=== PATIENT | male | born 1955 | race Caucasian/White ===

== ENCOUNTER 2017-05-05 11:00 | Inpatient (IN) | payer MEDICARE ==
[~2017-05-05] VITALS: Ht 170.2 cm; Wt 76.5 kg
--- NOTE | ~2017-05-05 | NM8 ---
[facility] A Service of [facility] & [facility] RADIOLOGY TEXT RESULTS PATIENT: DANIEL JONES LOCATION: [facility] 464-01 : 53 UNIT #: [id number] AGE: [address]: Enmanuel Mathis MD SEX: M ORDER DR: [id number] [facility] [address] [place], [place] [address] [id number] MR#: [id number] Acc #: [id number] NAME: DANIEL JONES : 1955 SEX: M STUDY DATE/TIME: 05/08/2017 13:07 UNIT: [facility] ROOM: [facility] STUDY DESCRIPTION: NM Bone or Joint Whole Body Attending Physician: Enmanuel Mathis M.D. Ordering Physician: Enmanuel Mathis M.D. Primary Care Physician: Isak Jacobs M.D. MEDICAL IMAGING REPORT This report is preliminary unless electronic signature is present EXAM Whole-body bone scan. HISTORY 62-year-old male diagnosed with transitional cell carcinoma. Patient underwent cystectomy and prostatectomy in 2014. Surveillance for metastatic disease. Complains of arthritis in knees, hands and ankles. COMPARISON Whole-body bone scan 07/13/2015, and CT chest, abdomen and pelvis 05/05/2017. FINDINGS Whole-body and selected spot images were performed of the axial and appendicular skeleton following the intravenous administration of 27.4 mCi technetium 99m MDP. Examination demonstrates increased uptake within the right knee predominately within the medial and patellofemoral compartments compatible with underlying osteoarthritis. Degenerative uptake is also noted within the right midfoot and within the right first MTP joint. No abnormal uptake identified within the long bones ribs, pelvis spine or skull to suggest osseous metastatic disease. Bilateral renal activity noted. As the patient has undergone a cystectomy, activity is seen within the right lower quadrant, and within the patient's ostomy bag. Bilateral renal activity noted. Additional spot views were obtained and the patient's ostomy bag was repositioned which revealed no pathology within the pelvis. IMPRESSION 1. No bone scan findings to suggest osseous metastatic disease. 2. Degenerative uptake right knee, right midfoot, and right first MTP joint. [facility] A Service of [facility] & [facility] RADIOLOGY TEXT RESULTS PATIENT: DANIEL JONES LOCATION: [facility] 464-01 : 53 UNIT #: [id number] AGE: [address]: Enmanuel Mathis MD SEX: M ORDER DR: Dictated by... Radha Langley M.D. THIS IS AN ELECTRONICALLY VERIFIED REPORT Radha Langley M.D. at 05/10/2017 5:12 PM Lazaro TD: 05/08/2017 23:30 JOB #: [id number] MEDICAL IMAGING REPORT Page 1 of 1 COPY
--- NOTE | ~2017-05-05 | CT55 ---
[facility] A Service of [facility] & [facility] RADIOLOGY TEXT RESULTS PATIENT: DANIEL JONES LOCATION: [facility] 464-01 : 53 UNIT #: [id number] AGE: [address]: Enmanuel Mathis MD SEX: M ORDER DR: [id number] [facility]. [place], [place] [address] [id number] I MR#: [id number] Acc #: [id number] NAME: DANIEL JONES : 1955 SEX: M STUDY DATE/TIME: 05/05/2017 18:21 UNIT: [facility] ROOM: [facility] STUDY DESCRIPTION: CT Chest W Con Attending Physician: Enmanuel Mathis M.D. Ordering Physician: Enmanuel Mathis M.D. Primary Care Physician: Isak Jacobs M.D. MEDICAL IMAGING REPORT This report is preliminary unless electronic signature is present EXAM CT chest with IV contrast HISTORY Bladder cancer, new diagnosis. CT for cancer staging. TECHNIQUE This CT exam was performed with one or more of the following radiation dose reduction techniques: automatic exposure control, adjustment of mA and/or kV according to patient size, and iterative reconstruction. FINDINGS CT chest with IV contrast demonstrates mild subsegmental atelectasis in the posterior lower lobes bilaterally, right greater than left. Mild patchy interstitial and ground-glass infiltrates in the bilateral upper lobes and, to a lesser degree in the right middle lobe and lingula. These could be infectious or inflammatory or postinflammatory. No airspace consolidation. No pleural effusion. No pulmonary mass. No adenopathy. Incidental calcified mediastinal and right hilar nodes. Normal caliber thoracic aorta. IMPRESSION 1. No evidence of metastatic disease. 2. Mild patchy ground-glass and interstitial infiltrates in the bilateral upper lobes and to a lesser degree in the right middle lobe and lingula. These could be infectious or inflammatory or postinflammatory. 3. Mild subsegmental atelectasis posterior lower lobes bilaterally. Dictated by... Fernando Scherer M.D. THIS IS AN ELECTRONICALLY VERIFIED REPORT [facility] A Service of [facility] & [facility] RADIOLOGY TEXT RESULTS PATIENT: DANIEL JONES LOCATION: [facility] 464-01 : 53 UNIT #: [id number] AGE: [address]: Enmanuel Mathis MD SEX: M ORDER DR: Fernando Scherer M.D. at 05/06/2017 2:21 PM BARBER/libertad TD: 05/06/2017 12:44 JOB #: [id number] MEDICAL IMAGING REPORT Page 1 of 1 COPY
--- NOTE | ~2017-05-05 | OR ---
Unit #: [id number] #: [id number] Patient: DANIEL VICTOR [id number] [address] [address] [id number] I MR#: [id number] NAME: DANIEL VICTOR. ROOM: 464 Date of Procedure: 05/05/2017 Admission Date: 05/05/2017 Surgeon: Enmanuel Mathis M.D. : 1955 Attending Physician: Enmanuel Mathis M.D. Primary Care Physician: Isak Jacobs M.D. PROCEDURE OPERATIVE NOTE PREOPERATIVE DIAGNOSES 1. History of transitional cell carcinoma of the bladder. 2. Penile mass. POSTOPERATIVE DIAGNOSES 1. History of transitional cell carcinoma of the bladder. 2. Penile mass. PROCEDURES PERFORMED 1. Urethroscopy. 2. Urethral biopsy. 3. Penile biopsy. SURGEON Enmanuel Mathis M.D. ANESTHESIA General. INDICATIONS FOR PROCEDURE Mr. Victor is a pleasant 62-year-old gentleman who underwent a radical cystoprostatectomy in 2014. His pathology revealed transitional cell carcinoma with glandular differentiation involving the prostatic ducts and seminal vesicles. It was unclear if it was a prosthetic urethra versus bladder origin. He did have positive apical margin for transitional cell carcinoma but negative nodes. He had one dose of chemotherapy but he stopped and declined further chemotherapy. He has developed penile and testicular pain over the last two months which has become severe requiring multiple narcotics. The patient has not typically been one to complain of pain in the past. On his penile exam, he has masses of the proximal penis around the corporal bodies as well as distally as well. Based on this, the risks, benefits, and alternatives of urethroscopy, urethral biopsy, and biopsy of his penile lesions were discussed with the patient. The risks, benefits, and alternatives including bleeding, infection, damage to adjacent structures, need for further surgery, as well as, risk of anesthesia were discussed with the patient. Informed consent was obtained. He wished to proceed. DESCRIPTION OF PROCEDURE The patient was taken to the operating suite and properly identified. After the application of satisfactory general anesthetic, all pressure points were padded to the satisfaction of surgical, anesthetic and nursing teams. His genitalia were prepped and draped in the usual sterile Unit #: [id number] #: [id number] Patient: DANIEL VICTOR. I introduced the 26-Malay continuous flow resectoscope. I was able to go to the level of the proximal urethra. I used a cutting loop to excise multiple biopsies of the urethra. I also did a biopsy distally as well. I then used Yang-Cut biopsy needle to take biopsy specimens of his proximal and distal penis. Hemostasis was achieved. A penile dressing was placed. The patient tolerated the procedure well without complications. PLAN Will need to followup his pathology. I am highly suspicious that this is a recurrence in the penis. We will restage him with a repeat CT scan of his chest, abdomen, and pelvis although these were essentially negative two months ago. We will work to get his pain under better control. Dictated by... Enmanuel Mathis M.D. MADELYN/klarissa TD: 05/05/2017 17:07 JOB #: [id number] PROCEDURE OPERATIVE NOTE Page 1 of 1 X Enmanuel Mathis MD X PROCEDURE OPERATIVE NOTE
--- NOTE | ~2017-05-05 | EKG ---
PATIENT: DANIEL JONES UNIT #: [id number] Ventricular Rate: 91 BPM Atrial Rate: 91 BPM P-R Interval: 144 ms QRS Duration: 88 ms Q-T Interval: 348 ms QTC Calculation(Bezet): 428 ms P [place]: 6 degrees Calculated R [place]: -5 degrees Calculated T [place]: 61 degrees Diagnosis Line: Normal sinus rhythm Diagnosis Line: Normal ECG Diagnosis Line: When compared with ECG of 08-JUN-2015 18:12, Diagnosis Line: Premature atrial complexes are no longer Present Diagnosis Line: Confirmed by MEMO WOOD MD ([id number]) on Diagnosis Line: 05/05/2017 7:37:20 PM INTERPRETING MD: ISRAEL MUNIZ
--- NOTE | ~2017-05-05 | DS ---
Unit #: [id number] #: [id number] Patient: DANIEL JONES [id number] [address] [address] [id number] I MR#: [id number] NAME: DANIEL JONES ROOM: 464 Age: 62 Sex: M Admission Date: 05/05/2017 : 1955 Discharge Date: 05/09/2017 Attending Physician: Enmanuel Mathis M.D. Primary Care Physician: Isak Jacobs M.D. DISCHARGE SUMMARY DIAGNOSIS Metastatic bladder cancer. PROCEDURES Urethral biopsy. HOSPITAL COURSE The patient underwent ureteroscopy, urethral biopsy, and penile biopsy. Pathology shows metastatic bladder cancer. The patient had pain control issues postop. Plan is send him home, then have outpatient radical penectomy. Past medical history of COPD, bladder cancer. He had a radical cholecystectomy, ileal conduit, history of prostate cancer, cystoscopy, radiation for prostate cancer, prostate biopsy, and epilepsy. Medications; please refer to reconciliation sheet. Hospital course; on admission, the patient had issues with pain control. He is going to be discharged home today and be scheduled for radical penectomy as an outpatient. Dictated by... Clayton Hassan M.D. DALJIT/pedrito TD: 05/12/2017 02:23 JOB #: [id number] DISCHARGE SUMMARY Page 1 of 1 X Clayton Hassan MD X DISCHARGE SUMMARY
--- NOTE | ~2017-05-05 | CT2 ---
[facility] A Service of [facility] RADIOLOGY TEXT RESULTS PATIENT: DANIEL JONES LOCATION: [facility] : 53 UNIT #: [id number] AGE: [address]: Enmanuel Mathis MD SEX: M ORDER DR: [id number] [place], [place] [address] [id number] I MR#: [id number] #: [id number] NAME: DANIEL JONES : 1955 SEX: M STUDY DATE/TIME: 05/05/2017 18:21 UNIT: [facility] ROOM: 4 STUDY DESCRIPTION: CT Abd and Pelv W Cont Attending Physician: Enmanuel Mathis M.D. Ordering Physician: Enmanuel Mathis M.D. Primary Care Physician: Isak Jacobs M.D. MEDICAL IMAGING REPORT This report is preliminary unless electronic signature is present EXAM CT abdomen and pelvis HISTORY Bladder cancer, new diagnosis. Hematuria. CT for cancer staging. FINDINGS This CT examination was performed with one or more of the following radiation dose reduction techniques: automatic exposure control, adjustment of mA and/or kV according to patient size, and iterative reconstruction. CT abdomen and pelvis was performed with IV contrast. CT ABDOMEN: No hepatic mass or biliary dilatation. The gallbladder, spleen, pancreas, left kidney, and adrenal glands are normal. Parenchymal scar in the lateral mid-right kidney. Normal caliber abdominal aorta. No bowel dilatation. No ascites or adenopathy. Right lower quadrant ileostomy. CT PELVIS: No pelvic mass. No bowel dilatation. Cystectomy. Prostatectomy. Penile enlargement. IMPRESSION 1. No evidence of metastatic disease in the abdomen or pelvis. 2. Cystectomy and prostatectomy with right lower quadrant ileostomy and urinary diversion. 3. Penile enlargement. 4. Parenchymal scar in the lateral mid-right kidney. Dictated by... [facility] A Service of [facility] RADIOLOGY TEXT RESULTS PATIENT: DANIEL JONES LOCATION: [facility] : 53 UNIT #: [id number] AGE: [address]: Enmanuel Mathis MD SEX: M ORDER DR: Fernando Scherer M.D. THIS IS AN ELECTRONICALLY VERIFIED REPORT Fernando Scherer M.D. at 05/06/2017 2:22 PM BARBER/jannie TD: 05/06/2017 12:55 JOB #: [id number] MEDICAL IMAGING REPORT Page 1 of 1 COPY
[~2017-05-05 11:00] MED LIST: ASPIRIN81 M2 PO; ATIVAN PO; BACTRIM 400-801 TA1 PO; BACTRIM DS TABL1 TA2 DOB; CHOLESTEROL MED; CIPRO PO; CIPRO250 M1 PO; COLACE PO; HYDROCODONE-APA1 T58 PO; LEVAQUIN750 M1 PO; LOPID600 MG PO; LORAZEPAM1 MG PO; METOPROLOL TAR25 MG PO; NICOTINE TRANSD21 MG TD; NORCO 7.5-3251 EACH PO; PERCOCET 51 UDTAB 5/ PO; PERCOCET5/325 PO; PHENERGAN PO; PROVENTIL INH0.5 ML NEB; PYRIDIUM PO; VIBRAMYCIN100 M1 PO; VICODIN PO
[2017-05-05 11:43] LABS: HEMATOCRIT 47.1 % (38.0-50.0); HEMOGLOBIN 16.2 gm/dL (13.0-16.0); MEAN CELL VOLUME 91.4 FL (83-96); MEAN CORPUSCULAR HEMOGLOBIN 31.5 PG (28-34); MEAN CORPUSCULAR HGB CONC 34.5 g/dL (30-36); MEAN PLATELET VOLUME 7.9 FL (6.5-11.5); RED BLOOD COUNT 5.16 X10e (3.90-5.60); WHITE BLOOD COUNT 10.7 X10e3 (4.0-10.5)
[2017-05-05] MEDS ORDERED: ALBUTEROL 0.5ML INH (11:45)
[2017-05-05] MEDS ORDERED: PERCOCET10 PO (11:57)
[2017-05-05 12:20] LABS: BUN/CREATININE RATIO 12.3; CALCIUM SERUM 10.1 mg/dL (8.4-10.2); CREATININE SERUM 1.3 mg/dL (0.6-1.4); GLOM FILT RATE Estimated 57.7 mL/min (>60); POTASSIUM 4.3 mmol/L (3.5-5.1)
== END 2017-05-09 10:30 | disposition home or self-care (01) | DRG 710 ==
LOC: CSUR 11:00 → C4C 15:07 → CSUR 16:14 → C4C 16:14
PROVIDERS: Urology
PROC: 0TBD8ZX Excision of Urethra, Via Natural or Artificial Opening Endoscopic, Diagnostic (ICD-10-PCS; principal; 2017-05-05 13:00)
PROC: 0VBSXZX Excision of Penis, External Approach, Diagnostic (ICD-10-PCS; 2017-05-05 13:00)
DX: C79.82 Secondary malignant neoplasm of genital organs (principal); C67.9 Malignant neoplasm of bladder, unspecified; J44.9 Chronic obstructive pulmonary disease, unspecified; Z85.46 Personal history of malignant neoplasm of prostate; Z92.3 Personal history of irradiation; Z90.49 Acquired absence of other specified parts of digestive tract
CPT/HCPCS: 71260; 74177; 78306; 80048; 85027; 88305; 93005; 94010; 94760; 94761; 96372; 96374; 96375; 99283; A9503; J1170; J1650; J1956; J2060; J2250; J2405; J3010; Q9967

== ENCOUNTER 2017-05-15 19:17 | Inpatient (IN) | payer MEDICARE ==
[~2017-05-15] VITALS: Ht 170.2 cm; Wt 81.0 kg
--- NOTE | ~2017-05-15 | CO ---
Unit #: [id number] #: [id number] Patient: DANIEL JONES [id number] [address] [place], [place] [address] [id number] I MR#: [id number] NAME: DANIEL JONES. ROOM: 547 Age: 62 Sex: M Admission Date: 05/16/2017 : 1955 Attending Physician: Addi Lopez M.D. Primary Care Physician: Isak Jacobs M.D. CONSULTATION REPORT CHIEF COMPLAINT Pain in penis. HISTORY OF PRESENT ILLNESS A 62-year-old gentleman with a history of metastatic bladder cancer to his penis. He had cystoscopy or urethroscopy with biopsy and revealed metastatic bladder cancer. The patient is to undergo penectomy in the near future. He came back into the hospital due to pain control issues. PAST MEDICAL HISTORY 1. Radical cystectomy for bladder cancer. 2. Radiation therapy for prostate cancer before he had the radical cystectomy. 3. Anxiety. 4. Cystoscopy. 5. TRBT before radical cystectomy. 6. He has an ileal conduit. 7. Seizures as a child. 8. COPD. 9. GERD. 10. Left index finger surgery. SOCIAL HISTORY Positive for smoking. FAMILY HISTORY Negative for any urologic issues. ALLERGIES Penicillin. HOME MEDICATIONS 1. Percocet 10. 2. Toradol. 3. Xanax. PHYSICAL EXAMINATION VITAL SIGNS: He is afebrile. Vital signs are stable. CARDIAC: Benign. PULMONARY: Benign. HEENT: Eyes equal and reactive to light. Trachea is midline. ABDOMEN: Soft without rebounding or guarding. Conduit and stoma benign. Stoma has pink mucosa. Urine in the bag is clear. The patient has redundant foreskin. He is tender on the penis. There is no erythema. He Unit #: [id number] #: [id number] Patient: DANIEL JONES has got a palpable mass at the penoscrotal junction. It is tender consistent with urethral and penile mass. EXTREMITIES: No clubbing, cyanosis, or edema. NEUROLOGIC: Cranial nerves II-XII were intact. DIAGNOSTIC STUDIES LABORATORY: Creatinine 1.4. White count is normal 9.9, hemoglobin 15.7. ASSESSMENT Metastatic bladder cancer to the penis. Patient to undergo penectomy in the future. Admitted for pain control issues. He has had radiation therapy for prostate cancer. He is not a candidate for salvage or palliative radiation. His oncologist is at another hospital system. Will follow along while he is in the hospital. Dictated by... Clayton Hassan M.D. DALJIT/klarissa TD: 05/16/2017 15:26 JOB #: [id number] CONSULTATION REPORT Page 1 of 1 X Clayton Hassan MD X CONSULTATION REPORT
--- NOTE | ~2017-05-15 | CO ---
Unit #: [id number] #: [id number] Patient: DANIEL JONES [id number] [address] [place], [place] [address] [id number] I MR#: [id number] NAME: DANIEL JONES. ROOM: 547 Age: 62 Sex: M Admission Date: 05/16/2017 : 1955 Attending Physician: Addi Lopez M.D. Primary Care Physician: Isak Jacobs M.D. CONSULTATION REPORT REASON FOR CONSULTATION Elevated BUN and creatinine. HISTORY OF PRESENTING ILLNESS This patient is a 62-year-old pleasant white gentleman with history of prostatic cancer, status post prostate resection. The patient has a cancer in the urinary bladder, underwent cystectomy with ileal conduit creation. The patient was admitted with complaint of a pain and bleeding through the penis. 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 The patient still continues to smoke. He was counseled to quit smoking. He was having intense pain. He was admitted for pain control and further workup for the urethral cancer. The patient's baseline creatinine is not known. His creatinine was 1.7. The patient has been receiving Toradol and gemfibrozil, both of which are nephrotoxic. I will hold them, continue with IV hydration with normal saline. We will rule out other secondary causes. The patient does have some degree of fever and pyuria indicative of some infection in the urinary system. PAST MEDICAL HISTORY As per history of presenting illness. He also has a history of hypertriglyceridemia and history of SVT in the past. FAMILY HISTORY Noncontributory. MEDICATIONS Included lorazepam 1 mg p.o. t.i.d., Colace 100 mg daily, Proventil inhaler, Lopid 600 mg b.i.d., Proventil daily, and Percocet 1 tablet q.4 to 6 hours p.r.n. He was also given some doses of Toradol, which has been discontinued. PHYSICAL EXAMINATION GENERAL: The patient looks clinically dry. VITAL SIGNS: Temperature 97.9, pulse is 77, and blood pressure 125/79. HEENT: Unremarkable. Dry mucosa. No oral exudate. NECK: Supple. There is no JVD. No bruit. No thyromegaly. No cervical lymphadenopathy. CHEST: Clear to auscultation bilaterally. CARDIOVASCULAR: Regular rate and rhythm. No rub, murmur, or gallop. ABDOMEN: Soft, nontender, and nondistended. Positive bowel sounds. EXTREMITIES: No peripheral edema. DIAGNOSTIC STUDIES Unit #: [id number] #: [id number] Patient: DANIEL JONES LABORATORY RESULTS: Sodium 136, potassium 4.9, chloride 99, bicarb 28, BUN 17, creatinine 1.2, glucose 87, calcium is 9.8, and magnesium 2.0. Urine showed 5 to 10 wbc's, 5 to 10 rbc's, no bacteria. White cell count 9.5, hemoglobin 14.2, hematocrit 41.9, and platelets 441. ASSESSMENT Acute kidney injury, most likely secondary to intravascular volume depletion. Concerned about Toradol and Lopid, discontinue both and check urine lytes and urine eosinophils. Continue IV fluids at normal saline. We will monitor renal function. Avoid nephrotoxic agents. The patient was already seen by Urology for urethral bleed and cancer. I thank you for the opportunity to share care of this patient. Dictated by... Balaji Coelho M.D. DONAL/pedrito TD: 05/17/2017 16:36 JOB #: [id number] CONSULTATION REPORT Page 1 of 1 X Milton Coelho MD X CONSULTATION REPORT
--- NOTE | ~2017-05-15 | DS ---
Unit #: [id number] #: [id number] Patient: DANIEL VICTOR [id number] [address] [address] [id number] I MR#: [id number] NAME: DANIEL VICTOR ROOM: 572 Age: 62 Sex: M Admission Date: 05/18/2017 : 1955 Discharge Date: 05/28/2017 Attending Physician: Addi Lopez M.D. Primary Care Physician: Isak Jacobs M.D. DISCHARGE SUMMARY CONSULTANTS DURING HOSPITALIZATION Dr. Castrejon from renal services; Dr. Dioni Harmon from oncology services; Dr. Craig from cardiology services; Dr. Mathis from urology services. PROCEDURE PERFORMED DURING HOSPITALIZATION A radical penectomy for metastatic transitional cell carcinoma to the penis. This procedure was performed on 05/22/[address] Mathis. LAB WORKUP ON DISCHARGE 1. PT/INR is 10.9 and 1.0. CBC - WBC 9.2, hemoglobin 11.2, hematocrit 33.8 and platelet count of 382. Sodium 133, potassium 3.9, chloride 101, BUN 11, creatinine 0.7. Liver enzymes are stable. Troponin less than 0.03. 2. Pathology shows extensive lymph vascular space invasion present. Extensive (1) invasion present. Proximal margin is positive for carcinoma. 3. Significant imaging studies during hospitalization was CT scan of the chest, which was performed before admission to hospital. This showed no evidence of metastatic disease. Mild patchy ground glass and interstitial infiltrate in the bilateral upper lobe. 4. Bone scan which was performed on 05/08/2017 before patient's admission showed no bone scan findings to suggest osseous metastatic disease. HOSPITAL COURSE Mr. Victor is a 62-year-old male who was admitted by my colleague, Dr. Lopez, on 05/16/2017 for intractable penile pain with a history of penile and testicular cancer. Patient has metastatic bladder cancer, has had radical cystectomy in the past, and has a history of prostate cancer, status post prostatectomy with chemo and radiation. Patient was admitted to telemetry unit. Patient was started on broad spectrum pain medications. Dr. Dioni Esteves was consulted, patient required IV pain medications during hospitalization. Patient was also started on fentanyl patch 50 mcg q. 72 hours, along with oxycodone. Patient also received IV Dilaudid for breakthrough pain. Patient received IV antibiotics for possible UTI. He has completed the course. Dr. Mathis evaluated the patient and patient went through radical penectomy for metastatic disease. This procedure was performed on 05/22/2017. He is doing very well from that aspect. Patient will need to continue taking care of the incision, apply bacitracin 3 times a day. He can shower but no bath at this time. The patient needs to followup with Dr. Mathis in one week. Patient will have home health to follow patient at home. Patient developed atrial fibrillation during hospitalization. Patient was Unit #: [id number] #: [id number] Patient: DANIEL VICTOR seen by Dr. Craig from cardiology services. Patient has been started on Coumadin 5 mg daily. He will require anticoagulation therapy. Patient will followup with Dr. Craig on 07/22/2017 at 11:30 a.m. DISCHARGE DIAGNOSES 1. Status post radical penectomy for metastatic transitional cell cancer. 2. Metastatic bladder cancer. 3. Prostate cancer, status post treatment. 4. Urinary tract infection. Patient has completed a course of antibiotics. 5. Recurrent atrial fibrillation. 6. Chronic obstructive pulmonary disease. 7. Normal stress test on 05/19/2017. 8. Left ventricular ejection fraction of 70% to 75%, mild left ventricular outflow obstruction, mild mitral regurgitation. 9. Chronic obstructive pulmonary disease. 10. Hypomagnesemia, which was replaced. DISCHARGE MEDICATIONS 1. Albuterol sulfate q.4. nebulizer p.r.n. 2. Amiodarone 200 mg daily. 3. Bacitracin 0.9 g topically 3 times a day. 4. Lopid 600 mg b.i.d. 5. Lorazepam 1 mg 3 times a day p.r.n. 6. Colace 100 mg b.i.d. 7. Duragesic patch 50 mcg topically every 72 hours. 8. Percocet continue home dose. 9. Coumadin 5 mg p.o. daily. DISCHARGE INSTRUCTIONS 1. The patient is being discharged home in stable condition. 2. Medication as per med rec. 3. Followup with Dr. Mathis in one week. 4. [facility] to eval and treat at home. 5. PT and INR to be done in one week and call [phone] with results. 6. Followup with Dr. Craig, 07/22/2017 at 11:30 a.m. 7. Bacitracin to incision t.i.d. 8. No bath. Patient can shower. 9. Followup with primary care provider in one weeks. 10. Tobacco cessation counseling has been done. 11. Continue to follow up with Dr. Esteves as an outpatient. Dictated by... Polo Wood/derik TD: 05/30/2017 10:03 JOB #: [id number] Unit #: [id number] #: [id number] Patient: DANIEL VICTOR DISCHARGE SUMMARY Page 1 of 1 X Sofie Cevallos MD X DISCHARGE SUMMARY
--- NOTE | ~2017-05-15 | CO ---
Unit #: [id number] #: [id number] Patient: DANIEL JONES [id number] [address] [place], [place] [address] [id number] MR#: [id number] NAME: DANIEL JONES. ROOM: 547 Age: 62 Sex: M Admission Date: 05/16/2017 : 1955 Attending Physician: Addi Lopez M.D. Primary Care Physician: Isak Jacobs M.D. CONSULTATION REPORT REASON FOR CONSULTATION Preoperative clearance. HISTORY OF PRESENT ILLNESS This is a 62-year-old white male, new to our group with a past medical history of bladder cancer, status post ureteroscopy, urethral biopsy and penile biopsy on 05/09/2017. 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 He does have a history of radical cystectomy and iliac conduit in 05/2015. Prior to that, he had prostate cancer and underwent radiation. He does have a history of COPD. He had a Holter monitor placed in 10/2008, which revealed some supraventricular tachycardia. He has not followed with a medical appointment clerk since that time. He denies previous cardiac catheterizations. He did have a stress test, maybe 8 to 10 years ago that was reportedly normal. He denies hyperlipidemia, diabetes mellitus, myocardial infarction, or cerebrovascular accident. He presented to the emergency department on 05/16/2017 due to complaints of intractable pain in the lower abdomen, penis and scrotum. He was scheduled to undergo a penectomy in the first week of May, but due to intractable pain, the procedure has been changed to Friday. Cardiology was consulted for preoperative clearance. The patient states a couple of weeks ago, he did have pain in his chest. It was in the left anterior chest. There was no radiation to the neck, jaw, shoulders, or arms. There were no associated symptoms of nausea, vomiting, shortness of breath or diaphoresis. The pain resolved. He denies other episodes of chest pain. He admits to occasional dizziness, but no syncope. There are no reports of PND or orthopnea. He did have one episode of palpitations, but that has since resolved. PAST MEDICAL HISTORY 1. Metastatic bladder cancer to penis. 2. History of radical cystectomy and ileal conduit, 06/05/2015. 3. Prostate cancer, status post radiation. 4. COPD. 5. SVT diagnosed on Holter monitor, 10/2008. Reportedly normal stress test 8 to 10 years ago. Details unavailable. 6. Active tobacco abuse. PAST SURGICAL HISTORY 1. Ureteroscopy, urethral biopsy and penile biopsy 05/09/2017. 2. Radical cystectomy and iliac conduit 06/05/2015. 3. Bronchoscopy. 4. TURP on 04/24/2015. Unit #: [id number] #: [id number] Patient: DANIEL JONES 5. Cystoscopy, ureteroscopy and bladder biopsy, 01/2013. 6. Cystoscopy and biopsy, 09/17/2012, and 04/29/2011 and 10/02/2009. HOME MEDICATIONS Lorazepam 1 mg p.o. t.i.d. p.r.n. for anxiety, Colace 100 mg p.o. b.i.d. for constipation, Proventil 0.5 mL nebulizer q.4 hours p.r.n. shortness of breath, Lopid 600 mg p.o. b.i.d., Percocet 10/325 mg one tablet p.o. every 4 hours p.r.n. for pain. ALLERGIES Penicillin. SOCIAL HISTORY The patient lives in a private residence with his . He actively smokes cigarettes. He smoked 1 pack of cigarettes per day for 50 years. There are no reports of alcohol or illicit drug use. FAMILY HISTORY His mother had a myocardial infarction in her 60s. She also had hypertension. REVIEW OF SYSTEMS A 10-point review of systems negative except for details noted above in HPI. PHYSICAL EXAMINATION VITAL SIGNS: Temperature 97.9, pulse 64, blood pressure 125/79. CONSTITUTIONAL: This is a 62-year-old white male, in no acute distress. SKIN: Warm and dry. NECK: Supple. No jugular vein distention. No hepatojugular reflux. Normal carotid upstrokes. No carotid bruits auscultated. HEART: S1 and S2. Regular rate and rhythm. No murmurs, rubs, or gallops. LUNGS: Bilateral breath sounds have good air entry throughout all lung trinh. Respirations are even and nonlabored. No rales, rhonchi, or wheezes. ABDOMEN: Soft, nontender, and nondistended. Positive bowel sounds auscultated in all 4 quadrants. No ascites noted. EXTREMITIES: Bilateral lower extremities have no pretibial or pitting edema. DP and PT pulses are 2+. Capillary refill is less than 2 seconds. DIAGNOSTIC STUDIES LABORATORY RESULTS: White blood cell count 9.5, hemoglobin 14.2, hematocrit 41.9, platelets 441. Sodium 136, potassium 4.9, chloride 99, CO2 of 28, BUN 17, creatinine 1.2, glucose 87. Urinalysis with trace leuks, white blood cells 10 to 25 and 2+ bacteria. CARDIOVASCULAR STUDIES: EKG reveals sinus rhythm with nonspecific ST-T wave changes. QTc 425 msec. IMPRESSION 1. Metastatic bladder cancer to penis. 2. Intractable pain. 3. History of reported prostate cancer. 4. Chronic obstructive pulmonary disease. 5. Remote chest pain and palpitations. 6. History of supraventricular tachycardia in 2008. 7. Active tobacco abuse. Unit #: [id number] #: [id number] Patient: DANIEL JONES PLAN 1. The patient presented to the hospital with complaints of intractable pain and is known to have metastatic bladder cancer with mets to the penis. 2. He was started on pain medications and Urology is following. 3. Cardiology was consulted for preoperative clearance for penectomy. 4. The patient had an episode of chest pain recently with palpitations. Due to risk factors for ischemic disease and chest pain, he has been recommended to undergo a stress test for preoperative clearance. 5. 2D echocardiogram has been ordered to assess LV function and valves. 6. Fasting lipid profile and TSH have been ordered. 7. The patient has been placed on nicotine patch. He has been advised to refrain from tobacco abuse. Dictated by... Vannesa Aguilar APRN for Polo Strickland/pedrito TD: 05/19/2017 02:37 JOB #: [id number] CONSULTATION REPORT Page 1 of 1 X X CONSULTATION REPORT
--- NOTE | ~2017-05-15 | OR ---
Unit #: [id number] #: [id number] Patient: DANIEL VICTOR [id number] [address] [place], [place] [address] [id number] I MR#: [id number] NAME: DANIEL VICTOR. ROOM: [facility] Date of Procedure: 05/22/2017 Admission Date: 05/18/2017 Surgeon: Enmanuel Mathis M.D. : 1955 Attending Physician: Addi Lopez M.D. Referring Physician: Enmanuel Mahtis M.D. Primary Care Physician: Isak Jacobs M.D. PROCEDURE OPERATIVE NOTE PREOPERATIVE DIAGNOSIS Metastatic transitional cell carcinoma to the penis. POSTOPERATIVE DIAGNOSIS Metastatic transitional cell carcinoma to the penis. PROCEDURE PERFORMED Radical penectomy. SURGEON Enmanuel Mathis M.D. ANESTHESIA General. INDICATION FOR PROCEDURE Mr. 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 At the time he began chemotherapy but was unable to tolerate this or further treatment. He initially did well but recently presented with penile and perineal pain. Biopsy revealed urethral and corporal involvement of the penis by transitional cell carcinoma. The risks, benefits and alternatives including bleeding, infection, damage to adjacent structures, need for further surgery, failure to cure and all the other risks were discussed with the patient. His metastatic workup was otherwise negative but he does understand that his five year survival rate is very poor given the situation and that this is at least to a certain degree a palliative procedure as well. DESCRIPTION OF PROCEDURE The patient was taken to the operative suite and properly identified. After application of satisfactory general anesthetic, the patient was prepped in a dorsal lithotomy position and all pressure points were padded to the satisfaction of the surgical, anesthetic and nursing teams. SCDs were placed and activated. His genitalia were prepped and draped in the usual sterile fashion. I began by making an elliptical incision around the base of the penis using Bovie cauterization. I used this to dissect down to the corporal bodies as well as the distal urethra. I then made a perineal incision. The Knickerbocker retractor was placed. I dissected out the corporal bodies proximally to the ischial tuberosities. These were divided and ligated as proximally as possible using 2-0 silk ties. I dissected the urethra all the way down to the bulb and into the membranous Unit #: [id number] #: [id number] Patient: DANIEL VICTOR urethra and excised this at the urogenital diaphragm. Grossly there was no urethra left behind. I connected the upper and lower incisions and at this point passed the entire specimen off the table. I oversewed the base of the wound with 2-0 PDS [id number] sutures for hemostasis. It should be noted that I did clip the bulbar arteries as well. I did also place a finger in the rectum to ensure there was no rectal injury and there was not. At this point I turned my attention to closure. I closed the perineal incision using three layers of 3-0 Vicryl as well as a 4-0 Vicryl subcuticular stitch. I placed a NICOLLE drain out of the upper incision and secured this with a 2-0 silk drain stitch. I closed the upper incision with two layers of 2-0 Vicryl and the skin was closed with 3-0 chronic interrupted horizontal mattress sutures. Dermabond was placed on the perineal incision and bacitracin was placed on the upper incision. Fluffs and mesh underwear were placed. The patient tolerated the procedure well without complications. ESTIMATED BLOOD LOSS 100 mL. Dictated by... Polo Fallon/bernarda TD: 05/22/2017 21:04 JOB #: [id number] PROCEDURE OPERATIVE NOTE Page 1 of 1 X Enmanuel Mathis MD X PROCEDURE OPERATIVE NOTE
--- NOTE | ~2017-05-15 | EKG ---
PATIENT: DANIEL JONES UNIT #: [id number] Ventricular Rate: 76 BPM Atrial Rate: 76 BPM P-R Interval: 160 ms QRS Duration: 88 ms Q-T Interval: 378 ms QTC Calculation(Bezet): 425 ms P [place]: 21 degrees Calculated R [place]: 17 degrees Calculated T [place]: 48 degrees Diagnosis Line: Normal sinus rhythm Diagnosis Line: Normal ECG Diagnosis Line: When compared with ECG of 05-MAY-2017 11:30, Diagnosis Line: No significant change was found Diagnosis Line: Confirmed by NOVA DAVE MD ([id number]) on 05/21/2017 Diagnosis Line: 7:37:43 AM INTERPRETING MD: TENZIN MUNIZ
--- NOTE | ~2017-05-15 | CO ---
Unit #: [id number] #: [id number] Patient: DANIEL VICTOR [id number] [address] [place], [place] [address] [id number] I MR#: [id number] NAME: DANIEL VICTOR ROOM: 547 Age: 62 Sex: M Admission Date: 05/16/2017 : 1955 Attending Physician: Addi Lopez M.D. Primary Care Physician: Isak Jacobs M.D. Consultation Date: 05/18/2017 CONSULTATION REPORT REASON FOR CONSULTATION Intractable pain. HISTORY OF PRESENT ILLNESS Mr. Daniel Victor is a 62-year-old with a history of transitional cell carcinoma of the bladder originally diagnosed in 2014 undergoing a radical cystectomy with ileal conduit. His pathology revealed transitional carcinoma of bladder differentiation involving the prostatic ducts and seminal vesicles with unclear as to the origin, it arises from the prostatic urethra versus the bladder. He had positive apical margin for transitional carcinoma, but negative nodes. He received one cycle of chemotherapy after placement of MediPort, but declined any additional chemotherapy because of fatigue and weakness. This was 2 years ago. He now more recently has been diagnosed with local recurrence of this bladder cancer in his penile urethra and penis along with the testicles and is scheduled to undergo an orchiectomy with penectomy the following . Mr. Victor has been admitted to the hospital because of severe pain, which has been unbearable according to him. He has been taking initially hydrocodone followed thereafter Percocet and thereafter the combination of hydrocodone and Percocet taking one tablet every 4 hours, but no deep partial relief of pain. He tells me his appetite has been decreased and he has lost some weight. PAST MEDICAL HISTORY Bladder cancer as mentioned. Other medical problem includes anxiety, childhood seizures, COPD, GERD. PAST SURGICAL HISTORY Includes index finger surgery, TURBT before radical cystectomy, and cystoscopy. FAMILY HISTORY Negative for cancer. SOCIAL HISTORY Currently, smokes half a pack a day, but is smoking more. He is and lives with his . Has 3 daughters. ALLERGIES He is allergic to penicillin. REVIEW OF SYSTEMS Fourteen point review of systems was taken. CONSTITUTIONAL: Fatigue, weakness, decreased appetite, and weight. Unit #: [id number] #: [id number] Patient: DANIEL VICTOR EYES: Negative. EARS, NOSE, MOUTH, AND THROAT: Negative. CARDIOVASCULAR: Negative. RESPIRATORY: Negative. GASTROINTESTINAL: Negative. GENITOURINARY: As discussed. ALLERGIC/LYMPHATIC: Negative. SKIN: Negative. MUSCULOSKELETAL: Negative. NEUROLOGIC: Negative. PSYCHIATRIC: Negative. PHYSICAL EXAMINATION GENERAL: He is a pleasant middle-aged man, awake, alert, oriented x3. VITAL SIGNS: Temperature is 97.6, pulse 74, respirations 20, blood pressure 131/76, O2 saturations 100% on room air. HEENT: Shows pupils are equal and reactive well to light. There is no pallor or icterus. Mucous membranes are moist. NECK: Without adenopathy, JVD, or thyromegaly. CARDIOVASCULAR: First and second heart sounds are heard and regular without murmurs, gallops, or rubs. LUNGS: Chest expansion is symmetric bilaterally with normal breath sounds. ABDOMEN: Soft, nontender. Bowel sounds are active. No organomegaly. GENITOURINARY: Exam of external genitalia reveals a nodular mass behind the testicle as well as hard and tender swelling of the penis with erythema. No inguinal adenopathy. EXTREMITIES: 1+ edema. No cyanosis or clubbing. NEUROLOGIC: He is awake, alert, oriented x3 without any focal findings. PSYCHIATRIC: Normal affect. SKIN: Negative. LYMPHATIC: Negative. DIAGNOSTIC STUDIES LABORATORY RESULTS: CBC with a white count 11.4, hemoglobin 13.9, platelet count of 462,000. Basic metabolic panel shows BUN of 18, creatinine is 1. Urine culture shows E. coli more than 100,000 colony-forming units. ASSESSMENT AND PLAN Mr. Daniel Victor is a 62-year-old with a history of muscle invasive bladder cancer originally diagnosed in 2014, who presents with local recurrence in his penis and testicle, which is to undergo a radical penectomy and orchiectomy. At this time, his intractable pain is likely related to local recurrence and recommend adding a fentanyl patch 50 mcg q.72 hours along with changing to oxycodone 50 mg q.4 p.r.n. for pain. We will change to IV Dilaudid for breakthrough pain in case his p.o. breakthrough medication is inadequate. I also discussed with Mr. Victor that one of the options following surgery. If he has persistent disease, discontinue immunotherapy with an immune checkpoint inhibitor, which is shown to be extremely effective given his reluctance to receive any further chemotherapy. Thank you for allowing me to participate in his care and I will follow with you. Dictated by... Unit #: [id number] #: [id number] Patient: VICTORDANIEL M.D. VMR/pedrito TD: 05/19/2017 01:56 JOB #: [id number] CONSULTATION REPORT Page 1 of 1 X Dioni Esteves MD X CONSULTATION REPORT
--- NOTE | ~2017-05-15 | HP ---
Unit #: [id number] #: [id number] Patient: DANIEL VICTOR [id number] [address] [address] [id number] I MR#: [id number] NAME: DANIEL VICTOR. ROOM: 547 Age: 62 Sex: M Admission Date: 05/16/2017 : 1955 Attending Physician: Addi Lopez M.D. Primary Care Physician: Isak Jacobs M.D. HISTORY AND PHYSICAL ADMISSION DIAGNOSES 1. Intractable penile pain with history of penile and testicular carcinoma. 2. History of bladder cancer, status post radicle cystectomy. 3. History of prostate cancer, status post prostatectomy with chemo and radiation. 4. History of chronic obstructive pulmonary disease. 5. History of SVTs. 6. Dyslipidemia. 7. Hyperglycemia. HISTORY OF PRESENT ILLNESS Mr. Daniel Victor is a 62-year-old, gentleman with the extensive urological malignancy history. He is status post radicle cystectomy and prostatectomy, status post chemo and radiation secondary to bladder cancer and prostate cancer. He has also been diagnosed with the penile and testicular cancer. He is scheduled for surgery on May 27, but he presented to the emergency room with complaints of intractable penile pain. He was started on some IV pain medicine with Dilaudid and admitted. He is status post evaluation per urology and they are moving up his surgery date for next week, ; however, patient is unable to discharge home until that date secondary to intractable pain requiring IV pain medicine. He denies any fever or chills. Denies any chest pain, shortness of air, headache, dizziness, nausea, vomiting, diarrhea, or abdominal pain. So, 12-point review of systems on this patient is basically negative, except as above. PAST MEDICAL HISTORY Significant for history, again, of bladder cancer, prostate cancer, COPD, SVTs, and dyslipidemia. PAST SURGICAL HISTORY Significant for cystectomy, prostatectomy, kidney stents, and urostomy. MEDICATIONS Home medications on this gentleman include: 1. Ativan. 2. Colace. 3. Proventil. 4. Lopid. 5. Percocet. ALLERGIES Allergic to penicillin. Unit #: [id number] #: [id number] Patient: DANIEL VICTOR SOCIAL HISTORY He is an active smoker. Otherwise, no history of illicit drugs or alcohol abuse. FAMILY HISTORY Unremarkable. PHYSICAL EXAMINATION GENERAL APPEARANCE: Patient is a 62-year-old, gentleman in no acute distress. VITAL SIGNS: BP 100/73, heart rate 75, respirations 18, and temperature 98. HEENT: Head is atraumatic. Pupils are equal, round, and reactive to light and accommodation. Extraocular muscles are intact. Oropharynx clear. NECK: Supple. No mass. No JVD. No bruits. CHEST: Clear to auscultation bilaterally. CARDIOVASCULAR: S1 and S2. No murmurs. ABDOMEN: Soft, nontender, and nondistended. LOWER EXTREMITIES: Without any cyanosis, clubbing, or edema. UROLOGIC: He is uncircumcised and does have a bloody discharge from his penis. LABS AND DIAGNOSTICS LABORATORY: Chemistry is significant for blood glucose of 164, BUN and creatinine 16 and 1.4, and sodium 133. White count 9.9 and H and H 15.7 and 45.8. ASSESSMENT AND PLAN 1. Penile cancer with testicular cancer with intractable penile pain. Continue supportive care. Continue IV Dilaudid, gentle hydration, and p.r.n. Ativan. Status post evaluation per urology moving up the OR schedule for next . 2. History of bladder cancer, status post radicle cystectomy. Status post ileal conduit. 3. History of prostate cancer, status post prostatectomy, chemo, and radiation. 4. Chronic kidney disease. 5. Chronic obstructive pulmonary disease. 6. Dyslipidemia. 7. History of SVTs. 8. Gastrointestinal and deep venous thrombosis prophylaxes with some PPI and Lovenox. Dictated by Polo Bosch/luis miguel TD: 05/17/2017 08:06 JOB #: [id number] Unit #: [id number] #: [id number] Patient: DANIEL VICTOR HISTORY AND PHYSICAL Page 1 of 1 X Addi Lopez MD HISTORY AND PHYSICAL
--- NOTE | ~2017-05-15 | TH ---
Unit #: [id number] #: [id number] Patient: DANIEL JONES [id number] [address] [address] [id number] I MR#: [id number] NAME: DANIEL JONES : 1955 SEX: M STUDY DATE/TIME: 05/19/2017 UNIT: C5B ROOM: 547 STUDY DESCRIPTION: Lexiscan stress test - Nuclear Attending Physician: Addi Lopez M.D. Primary Care Physician: Isak Jacobs M.D. CARDIOLOGY REPORT PROCEDURE PERFORMED Lexiscan Cardiolite stress test - Nuclear portion. PROCEDURE Using technetium 99m-labeled Cardiolite, rest and stress SPECT images were obtained. Multiple SPECT images were obtained in various views, including horizontal and vertical long axis and short axis views of the left ventricle. Images were obtained by gated SPECT method. The patient was administered 11.49 mCi of Cardiolite at rest. The patient was administered 34.7 mCi of Cardiolite after Lexiscan infusion was completed. On the stress images, there is normal perfusion noted. The rest images show normal perfusion. Comparing the rest and stress images, there is no stress-induced ischemia noted. The left ventricular ejection fraction is calculated to be 69%. There is no focal wall motion abnormality seen. CONCLUSION 1. No stress-induced ischemia noted. 2. The left ventricular ejection fraction is calculated to be 69%. 3. There is no focal wall motion abnormality seen. 4. Normal Lexiscan Cardiolite stress test. Dictated by... Polo Bruno/zhou TD: 05/19/2017 15:43 JOB #: [id number] CARDIOLOGY REPORT Page 1 of 1 X Lynnette Craig MD <ELECTRONICALLY SIGNED> 07/10/17 1524 CARDIOLOGY REPORT
--- NOTE | ~2017-05-15 | ST ---
Unit #: [id number] #: [id number] Patient: DANIEL JONES [id number] [address] [place], [place] [address] [id number] I MR#: [id number] NAME: DANIEL JONES : 1955 SEX: M STUDY DATE/TIME: 05/18/2017 UNIT: C5B ROOM: 547 STUDY DESCRIPTION: Attending Physician: Addi Lopez M.D. Primary Care Physician: Isak Jacobs M.D. CARDIOLOGY REPORT EXAM EKG portion of Lexiscan Cardiolite stress test. REASON FOR EXAMINATION Remote chest pain and palpitations, possible preoperative clearance. FINDINGS Baseline EKG is sinus rhythm with a rate of 74 beats per minute. PROCEDURE A total of 0.4 mg of Lexiscan was injected per protocol followed by Cardiolite. Patient's symptoms were mild shortness of breath. There were no ST-T wave changes. Test was stopped due to protocol completion. IMPRESSION 1. There are no ST-T wave changes. 2. Mild shortness of breath, resolved in recovery. 3. No arrhythmias. 4. Please correlate with Cardiolite imaging. Dictated by... Lenora Cloud A.P.R.N. for Ashish Ma M.D. AM/klarissa TD: 05/18/2017 11:13 JOB #: [id number] CARDIOLOGY REPORT Page 1 of 1 X Lenora Cloud APRN CARDIOLOGY REPORT
--- NOTE | ~2017-05-15 | EKG ---
PATIENT: DANIEL JONES UNIT #: [id number] Ventricular Rate: 133 BPM Atrial Rate: 141 BPM QRS Duration: 82 ms Q-T Interval: 260 ms QTC Calculation(Bezet): 386 ms Calculated R [place]: 10 degrees Calculated T [place]: 63 degrees Diagnosis Line: Atrial fibrillation with rapid ventricular Diagnosis Line: response Diagnosis Line: Abnormal ECG Diagnosis Line: When compared with ECG of 17-MAY-2017 10:32, Diagnosis Line: Atrial fibrillation has replaced Sinus rhythm Diagnosis Line: Vent. rate has increased BY 57 BPM Diagnosis Line: Confirmed by NOVA DAVE MD ([id number]) on 05/27/2017 Diagnosis Line: 11:49:04 PM INTERPRETING MD: TENZIN MUNIZ
[~2017-05-15 19:17] MED LIST changes: +ALBUTEROL 0.5ML INH; +PERCOCET10 PO
[2017-05-15 20:37] LABS: BASOPHIL# 0.1 X10e3 (0-0.3); BASOPHIL% 1.1 % (0-2.5); EOSINOPHIL# 0.2 X10e3 (0-0.7); EOSINOPHIL% 1.6 % (0.0-7.0); HEMATOCRIT 45.8 % (38.0-50.0); HEMOGLOBIN 15.7 gm/dL (13.0-16.0); LYMPHOCYTE# 1.5 X10e3 (1.0-3.5); LYMPHOCYTE% 15.2 % (17.0-45.0); MEAN CELL VOLUME 90.2 FL (83-96); MEAN CORPUSCULAR HGB CONC 34.3 g/dL (30-36); MEAN PLATELET VOLUME 7.3 FL (6.5-11.5); MONOCYTE# 0.6 X10e3 (0-1.0); NEUTROPHIL# 7.6 X10e3 (1.5-7.1); NEUTROPHIL% 76.1 % (40-75); PLATELET COUNT 491 X10e3 (140-420); RED BLOOD COUNT 5.08 X10e (3.90-5.60); WHITE BLOOD COUNT 9.9 X10e3 (4.0-10.5)
[2017-05-15 20:38] LABS: DIFF IND NO
[2017-05-15 21:02] LABS: BUN/CREATININE RATIO 11.42; CALCIUM SERUM 9.9 mg/dL (8.4-10.2); CREATININE SERUM 1.4 mg/dL (0.6-1.4); GLOM FILT RATE Estimated 52.7 mL/min (>60); POTASSIUM 4.3 mmol/L (3.5-5.1)
[2017-05-15 23:08] LABS: URINE APPEARANCE CLOUDY; URINE BILIRUBIN NEG (NEG); URINE BLOOD NEG (NEG); URINE COLOR YELLOW; URINE GLUCOSE NEG (NEG); URINE KETONE NEG (NEG); URINE LEUKOCYTE ESTERASE TRACE (NEG); URINE NITRATE NEG (NEG); URINE PH 5.5 (5-8); URINE PROTEIN NEG (NEG); URINE SPECIFIC GRAVITY 1.011 (1.003-1.035); URINE UROBILINOGEN 0.2 MG/DL (NEG)
[2017-05-15 23:11] LABS: CULTURE INDICATED? YES; U HYALINE CASTS AUWI 0-2 /[LPF]; URBCS1 AUWI 0-2 /[HPF] (0-2); URINE BACTERIA AUWI 2+ (NEGATIVE); URINE SQUAMOUS EPITHELIAL CELL FEW /[HPF]
[2017-05-17 06:24] LABS: HEMATOCRIT 41.9 % (38.0-50.0); HEMOGLOBIN 14.2 gm/dL (13.0-16.0); MEAN CELL VOLUME 91.4 FL (83-96); MEAN CORPUSCULAR HGB CONC 33.9 g/dL (30-36); MEAN PLATELET VOLUME 7.5 FL (6.5-11.5); RED BLOOD COUNT 4.58 X10e (3.90-5.60); WHITE BLOOD COUNT 9.5 X10e3 (4.0-10.5)
[2017-05-17 07:03] LABS: BUN/CREATININE RATIO 14.16; CALCIUM SERUM 9.8 mg/dL (8.4-10.2); CREATININE SERUM 1.2 mg/dL (0.6-1.4); GLOM FILT RATE Estimated 63.5 mL/min (>60); POTASSIUM 4.9 mmol/L (3.5-5.1)
[2017-05-17 11:42] LABS: CHOLESTEROL 192 mg/dL (0-200); HDL CHOLESTEROL 24 mg/dL (29-75); LDL CHOLESTEROL 123 mg/dL (-130); LDL/HDL RATIO 5 RATIO (0-4); TRIGLYCERIDES 227 mg/dL (10-160)
[2017-05-18 05:32] LABS: HEMATOCRIT 40.7 % (38.0-50.0); HEMOGLOBIN 13.9 gm/dL (13.0-16.0); MEAN CELL VOLUME 90.5 FL (83-96); MEAN CORPUSCULAR HEMOGLOBIN 30.9 PG (28-34); MEAN CORPUSCULAR HGB CONC 34.1 g/dL (30-36); MEAN PLATELET VOLUME 7.6 FL (6.5-11.5); RED BLOOD COUNT 4.5 X10e (3.90-5.60); RED CELL DISTRIBUTION WIDTH 16.1 % (11.0-15.5); WHITE BLOOD COUNT 11.4 X10e3 (4.0-10.5)
[2017-05-18 06:31] LABS: CALCIUM SERUM 9.3 mg/dL (8.4-10.2); GLOM FILT RATE Estimated 79.2 mL/min (>60); MAGNESIUM 2.1 mg/dL (1.6-3.0); POTASSIUM 4.9 mmol/L (3.5-5.1)
[2017-05-19 07:01] LABS: CALCIUM SERUM 9.4 mg/dL (8.4-10.2); GLOM FILT RATE Estimated 79.2 mL/min (>60); POTASSIUM 4.1 mmol/L (3.5-5.1)
[2017-05-22 02:35] LABS: BASOPHIL# 0.1 X10e3 (0-0.3); BASOPHIL% 1.1 % (0-2.5); EOSINOPHIL# 0.4 X10e3 (0-0.7); HEMATOCRIT 40.7 % (38.0-50.0); HEMOGLOBIN 13.3 gm/dL (13.0-16.0); LYMPHOCYTE# 1.9 X10e3 (1.0-3.5); LYMPHOCYTE% 15.3 % (17.0-45.0); MEAN CELL VOLUME 91.1 FL (83-96); MEAN CORPUSCULAR HEMOGLOBIN 29.8 PG (28-34); MEAN CORPUSCULAR HGB CONC 32.7 g/dL (30-36); MEAN PLATELET VOLUME 7.5 FL (6.5-11.5); MONOCYTE# 1.5 X10e3 (0-1.0); MONOCYTE% 12.3 % (3.0-12.0); NEUTROPHIL# 8.3 X10e3 (1.5-7.1); NEUTROPHIL% 68.3 % (40-75); PLATELET COUNT 430 X10e3 (140-420); RED BLOOD COUNT 4.46 X10e (3.90-5.60); RED CELL DISTRIBUTION WIDTH 15.6 % (11.0-15.5); WHITE BLOOD COUNT 12.2 X10e3 (4.0-10.5)
[2017-05-22 02:39] LABS: DIFF IND NO
[2017-05-22 03:11] LABS: BUN/CREATININE RATIO 15.55; CALCIUM SERUM 9.2 mg/dL (8.4-10.2); CREATININE SERUM 0.9 mg/dL (0.6-1.4); GLOM FILT RATE Estimated 89.9 mL/min (>60); POTASSIUM 4.1 mmol/L (3.5-5.1)
[2017-05-22 03:22] LABS: CREATININE,RANDOM URINE 46 mg/dL; SODIUM URINE RANDOM 122 mmol/L
[2017-05-23 04:12] LABS: BASOPHIL# 0.1 X10e3 (0-0.3); BASOPHIL% 0.7 % (0-2.5); EOSINOPHIL# 0.3 X10e3 (0-0.7); EOSINOPHIL% 1.9 % (0.0-7.0); HEMATOCRIT 38.8 % (38.0-50.0); HEMOGLOBIN 13.1 gm/dL (13.0-16.0); LYMPHOCYTE# 1.3 X10e3 (1.0-3.5); LYMPHOCYTE% 9.2 % (17.0-45.0); MEAN CELL VOLUME 90.2 FL (83-96); MEAN CORPUSCULAR HEMOGLOBIN 30.4 PG (28-34); MEAN CORPUSCULAR HGB CONC 33.7 g/dL (30-36); MEAN PLATELET VOLUME 7.7 FL (6.5-11.5); MONOCYTE# 1.5 X10e3 (0-1.0); MONOCYTE% 10.5 % (3.0-12.0); NEUTROPHIL# 10.7 X10e3 (1.5-7.1); NEUTROPHIL% 77.7 % (40-75); PLATELET COUNT 420 X10e3 (140-420); RED CELL DISTRIBUTION WIDTH 15.8 % (11.0-15.5); WHITE BLOOD COUNT 13.8 X10e3 (4.0-10.5)
[2017-05-23 04:20] LABS: DIFF IND NO
[2017-05-23 04:35] LABS: BUN/CREATININE RATIO 16.66; CALCIUM SERUM 9.4 mg/dL (8.4-10.2); CREATININE SERUM 0.9 mg/dL (0.6-1.4); GLOM FILT RATE Estimated 89.9 mL/min (>60); MAGNESIUM 1.7 mg/dL (1.6-3.0); POTASSIUM 4.8 mmol/L (3.5-5.1)
[2017-05-24 03:39] LABS: HEMATOCRIT 33.9 % (38.0-50.0); HEMOGLOBIN 11.2 gm/dL (13.0-16.0); MEAN CELL VOLUME 90.4 FL (83-96); MEAN CORPUSCULAR HGB CONC 33.2 g/dL (30-36); MEAN PLATELET VOLUME 7.9 FL (6.5-11.5); RED BLOOD COUNT 3.75 X10e (3.90-5.60); RED CELL DISTRIBUTION WIDTH 15.7 % (11.0-15.5); WHITE BLOOD COUNT 14.3 X10e3 (4.0-10.5)
[2017-05-24 04:01] LABS: CALCIUM SERUM 8.3 mg/dL (8.4-10.2); GLOM FILT RATE Estimated 79.2 mL/min (>60); POTASSIUM 3.7 mmol/L (3.5-5.1)
[2017-05-25 03:08] LABS: HEMOGLOBIN 10.9 gm/dL (13.0-16.0); MEAN CELL VOLUME 89.4 FL (83-96); MEAN CORPUSCULAR HEMOGLOBIN 30.5 PG (28-34); MEAN CORPUSCULAR HGB CONC 34.1 g/dL (30-36); RED BLOOD COUNT 3.58 X10e (3.90-5.60); RED CELL DISTRIBUTION WIDTH 15.7 % (11.0-15.5); WHITE BLOOD COUNT 10.6 X10e3 (4.0-10.5)
[2017-05-25 03:29] LABS: BUN/CREATININE RATIO 18.75; CALCIUM SERUM 8.4 mg/dL (8.4-10.2); CREATININE SERUM 0.8 mg/dL (0.6-1.4); GLOM FILT RATE Estimated 94.4 mL/min (>60); POTASSIUM 4.1 mmol/L (3.5-5.1)
[2017-05-26 03:26] LABS: HEMATOCRIT 33.9 % (38.0-50.0); HEMOGLOBIN 11.2 gm/dL (13.0-16.0); MEAN CELL VOLUME 90.8 FL (83-96); MEAN CORPUSCULAR HEMOGLOBIN 30.1 PG (28-34); MEAN CORPUSCULAR HGB CONC 33.1 g/dL (30-36); MEAN PLATELET VOLUME 8.1 FL (6.5-11.5); RED BLOOD COUNT 3.73 X10e (3.90-5.60); RED CELL DISTRIBUTION WIDTH 15.5 % (11.0-15.5); WHITE BLOOD COUNT 9.1 X10e3 (4.0-10.5)
[2017-05-26 03:59] LABS: BUN/CREATININE RATIO 15.71; CALCIUM SERUM 8.7 mg/dL (8.4-10.2); CREATININE SERUM 0.7 mg/dL (0.6-1.4); GLOM FILT RATE Estimated 99.8 mL/min (>60); POTASSIUM 4.1 mmol/L (3.5-5.1)
[2017-05-27 04:59] LABS: MAGNESIUM 1.6 mg/dL (1.6-3.0); POTASSIUM 3.7 mmol/L (3.5-5.1)
[2017-05-27 06:36] LABS: BASOPHIL# 0.1 X10e3 (0-0.3); EOSINOPHIL# 0.3 X10e3 (0-0.7); EOSINOPHIL% 3.1 % (0.0-7.0); HEMATOCRIT 34.5 % (38.0-50.0); HEMOGLOBIN 11.4 gm/dL (13.0-16.0); LYMPHOCYTE# 1.9 X10e3 (1.0-3.5); LYMPHOCYTE% 19.8 % (17.0-45.0); MEAN CELL VOLUME 90.1 FL (83-96); MEAN CORPUSCULAR HEMOGLOBIN 29.8 PG (28-34); MEAN CORPUSCULAR HGB CONC 33.1 g/dL (30-36); MEAN PLATELET VOLUME 7.8 FL (6.5-11.5); MONOCYTE# 1.4 X10e3 (0-1.0); MONOCYTE% 14.6 % (3.0-12.0); NEUTROPHIL# 5.9 X10e3 (1.5-7.1); NEUTROPHIL% 61.5 % (40-75); PLATELET COUNT 411 X10e3 (140-420); RED BLOOD COUNT 3.83 X10e (3.90-5.60); RED CELL DISTRIBUTION WIDTH 15.8 % (11.0-15.5); WHITE BLOOD COUNT 9.5 X10e3 (4.0-10.5)
[2017-05-27 06:44] LABS: DIFF IND NO
[2017-05-27 07:21] LABS: ALBUMIN SERUM 2.7 g/dL (3.5-5.0); BILIRUBIN,TOTAL 0.4 mg/dL (0.2-2.0); BUN/CREATININE RATIO 15.71; CALCIUM SERUM 8.9 mg/dL (8.4-10.2); CREATININE SERUM 0.7 mg/dL (0.6-1.4); GLOM FILT RATE Estimated 99.8 mL/min (>60); POTASSIUM 3.9 mmol/L (3.5-5.1); PROTEIN TOTAL SERUM 6.5 g/dL (6.0-8.3)
[2017-05-27 08:29] LABS: %MB 3.2 % (0.0-4.0); MB 2.3 ng/ml
[2017-05-28 05:59] LABS: HEMATOCRIT 33.8 % (38.0-50.0); HEMOGLOBIN 11.2 gm/dL (13.0-16.0); MEAN CORPUSCULAR HEMOGLOBIN 29.9 PG (28-34); MEAN CORPUSCULAR HGB CONC 33.2 g/dL (30-36); MEAN PLATELET VOLUME 7.9 FL (6.5-11.5); RED BLOOD COUNT 3.75 X10e (3.90-5.60); RED CELL DISTRIBUTION WIDTH 15.7 % (11.0-15.5)
[2017-05-28 06:46] LABS: PROTHROMBIN TIME (PATIENT) 10.9 SECONDS (10.0-11.7)
[2017-05-28] MEDS ORDERED: AMIODARONE PO (15:45)
[2017-05-28] MEDS ORDERED: DURAGESIC1 EAC1 TD (15:46)
[2017-05-28] MEDS ORDERED: POLYSPORIN15 GM TOP (15:48)
[2017-05-28] MEDS ORDERED: COUMADIN5 MG PO (15:50)
== END 2017-05-28 16:24 | disposition home health service (06) | DRG 709 ==
LOC: CED 19:17 → CEDOF 05-16 01:00 → C5B 05-16 01:00 → CEDOF 05-16 02:29 → CED 05-16 02:29 → CEDOF 05-16 08:27 → C5B 05-16 08:27 → CEDOF 05-18 08:35 → C5B 05-18 08:35 → C4C 05-22 20:17 → C5C 05-26 21:34
PROVIDERS: Emergency Medicine; Hospitalist; Internal Medicine Cardiovascular Disease; Internal Medicine Nephrology; Nurse Practitioner; Nurse Practitioner Family; Urology
PROC: B246YZZ Ultrasonography of Right and Left Heart using Other Contrast (ICD-10-PCS; principal; 2017-05-17)
PROC: 0VTS0ZZ Resection of Penis, Open Approach (ICD-10-PCS; 2017-05-22)
DX: C79.82 Secondary malignant neoplasm of genital organs (principal); N17.9 Acute kidney failure, unspecified; I95.9 Hypotension, unspecified; E83.42 Hypomagnesemia; I48.91 Unspecified atrial fibrillation; N39.0 Urinary tract infection, site not specified; G89.3 Neoplasm related pain (acute) (chronic); E78.5 Hyperlipidemia, unspecified; J44.9 Chronic obstructive pulmonary disease, unspecified; F17.210 Nicotine dependence, cigarettes, uncomplicated; Z71.6 Tobacco abuse counseling; Z85.51 Personal history of malignant neoplasm of bladder; Z85.46 Personal history of malignant neoplasm of prostate; Z88.0 Allergy status to penicillin; B96.20 Unspecified Escherichia coli [E. coli] as the cause of diseases classified elsewhere; F41.9 Anxiety disorder, unspecified; K21.9 Gastro-esophageal reflux disease without esophagitis
CPT/HCPCS: 36415; 78452; 80048; 80053; 80061; 81003; 82330; 82436; 82550; 82553; 82570; 83735; 84132; 84300; 84443; 84484; 85025; 85027; 85610; 86850; 86900; 86901; 87086; 87088; 87186; 88309; 89190; 93005; 93017; 93306; 94640; 94760; 96361; 96374; 96375; 96376; 97110; 97116; 97162; 97166; 97530; 97535; 99285; A9500; G0378; G8978-GP; G8979-GP; G8987-GO; G8988-GO; J0690; J0696; J1170; J1450; J1650; J1885; J1956; J2250; J2405; J2785; J3010; J3475

== ENCOUNTER 2017-06-22 10:44 | Emergency (ER) | payer MEDICARE ==
[~2017-06-22] VITALS: Ht 167.6 cm; Wt 68.0 kg
--- NOTE | ~2017-06-22 | CT2 ---
[facility] A Service of [facility] & [facility] RADIOLOGY TEXT RESULTS PATIENT: DANIEL JONES LOCATION: [facility] : 53 UNIT #: [id number] AGE: [address]: Enmanuel Navarrete MD SEX: M ORDER DR: [id number] [facility] [address] [place], [place] [address] [id number] E MR#: [id number] Acc #: [id number] NAME: DANIEL JONES. : 1955 SEX: M STUDY DATE/TIME: 06/22/2017 12:41 UNIT: [facility] ROOM: STUDY DESCRIPTION: CT Abd and Pelv W Cont Attending Physician: Enmanuel Navarrete M.D. Ordering Physician: Enmanuel Navarrete M.D. Primary Care Physician: Isak Jacobs M.D. MEDICAL IMAGING REPORT This report is preliminary unless electronic signature is present REVISED REPORT SEE ADDENDUM EXAM CT abdomen and pelvis with IV contrast. COMPARISON May 05, 2017, April 11, 2015, September 17, 2007. INDICATION 62-year-old male with recent penectomy, complaining of persistent pain at the scrotum and site of the penile excision. TECHNIQUE Axial CT imaging of the abdomen and pelvis was performed after IV administration of 100 mL Isovue-370. Coronal and sagittal reformats were constructed. This CT exam was performed with one or more of the following radiation dose reduction techniques: automatic exposure control, adjustment of mA and/or kV according to patient size, and iterative reconstruction. FINDINGS Changes of penectomy are new from CT of May 05, 2017. Multilevel degenerative changes of the lower lumbar spine. No acute fractures or suspicious osseous lesions. Small posterior disc protrusions are noted in all levels of the lumbar spine including L5-S1. Calcified granuloma in the right lower lobe. Compared April 11, 2015, there is a new nodular density adjacent to the calcified granuloma in the right lower lobe. This measures up to 5 mm. There is a stable 6 mm nodule in the right lower lobe and a separate adjacent nodule that may not have been present at that time measuring up to 6 mm in the right lower lobe as compared to March 2015. There are two other nodules in the right lung which are new in the [facility] A Service of [facility] & [facility] RADIOLOGY TEXT RESULTS PATIENT: DANIEL JONES LOCATION: [facility] : 53 UNIT #: [id number] AGE: [address]: Enmanuel Navarrete MD SEX: M ORDER DR: right lower lobe measuring 5 mm and 6 mm and another new nodular density which has a ground-glass characteristic measuring up to 4 mm. There is also a separate new 7 mm nodule in the medial basilar segment right lower lobe. In the posterior basilar segment right lower lobe, there are three new adjacent nodules measuring up to 6 mm, 4 mm, and 7 mm. There is a tiny pleural-based nodule in the right lower lobe which is measuring 3 mm, not seen previously. There is also suggestion of new left-sided pulmonary nodules, one of which is in the lingula measuring up to 3 mm, one of which is in the left lower lobe abutting the major fissure measuring up to 5 mm as compared to March 2015. These nodules also appear new from May 05, 2017 and would seem to indicate an infectious or inflammatory etiology, although metastatic disease cannot be excluded. There is hepatomegaly. Low-density lesion in the left hepatic lobe measures up to 5 mm with a separate left hepatic lobe 4 mm low-density lesion. These are too small to characterize. Some of these appear stable from May 05, 2017, but the one more medially in the left hepatic lobe was not seen at that time. The spleen and pancreas are unremarkable. The left adrenal gland is mildly thickened without discrete nodule. Right adrenal gland is unremarkable. There is scarring in the superior right kidney. There is no hydronephrosis or hydroureter. There are changes of cystectomy, prostatectomy, and ileal urinary diversion. There is calcified and noncalcified plaque of the abdominal aorta. Calcifications involving the origins of the celiac and left renal artery. No evidence of significant stenosis. There is ectasia of the renal abdominal aorta measuring up to approximately 2.1 cm. No evidence of venous thrombosis. The appendix is not definitively seen and may be surgically absent. There are no secondary signs of an acute appendicitis. No free fluid or pneumoperitoneum. No adenopathy by CT size criteria. IMPRESSION 1. No definite acute findings in the abdomen, pelvis, or imaged lower chest. There are multiple new pulmonary nodules as compared to April of this year, largest which measures up to approximately 6-7 mm. These could be infectious or inflammatory but given the patient's history of malignancy, metastatic disease is not entirely excluded. Consider CT chest followup without IV contrast in 3 months to document stability or resolution. 2. Two low-density lesions in the left hepatic lobe which are too small to characterize. One of these appears new from March 2015. Statistically, these most likely represent benign cysts but given the history of malignancy, metastatic disease cannot be excluded. Continued imaging followup is recommended. These are below resolution of PET. Consider followup CT abdomen and pelvis with IV contrast in 6 months to a year. There is no other evidence of possible metastatic disease in the abdomen and pelvis. 3. The patient is post penile excision, as compared to most recent exam. There has also been prostatectomy and cystectomy with stable changes of urinary diversion. There is no evidence of complication. No STS. [facility] A Service of [facility] RADIOLOGY TEXT RESULTS PATIENT: DANI[facility] J[id number] 51 UNIT #: [id number] AGE: [address]: Enmanuel Navarrete MD SEX: M ORDER DR: evidence of bowel obstruction. 4. Hepatomegaly without evidence of cirrhosis. Other incidental findings as described in the body of the report. 5. It was stated above that there is no evidence of complication post penile excision but there is a small fluid collection at the base of the penis which may be an expected postop finding but abscess cannot be excluded. Findings discussed with ER physician at time of dictation. Dictated by... Umesh Mota M.D. THIS IS AN ELECTRONICALLY VERIFIED REPORT Umesh Mota M.D. at 06/29/2017 9:22 AM Chase TD: 06/22/2017 17:42 JOB #: [id number] ADDENDUM Not mentioned in the original report there is colonic diverticulosis without evidence of acute diverticulitis. Dictated by... oPlo Tejeda TD: 06/22/2017 18:00 JOB #: [id number] ADDENDUM There is also a fluid collection at the base of the penis in this patient post penile excision, measuring 3.8 cm x 3.4 cm x 2.2 cm. This has suggestion of some peripheral rim enhancement and this could represent postoperative seroma or potentially an abscess. These findings were relayed to Dr. Navarrete at the time of this dictation at 3:22 p.m. on June 22, 2017. He acknowledged receipt. He was also informed of the [facility]. [facility] A Service of [facility] RADIOLOGY TEXT RESULTS PATIENT: DANIEL JONES [id number] 53 UNIT #: [id number] AGE: [address]: Enmanuel Navarrete MD SEX: M ORDER DR: pulmonary nodules and recommendations for followup CT. Dictated by... Umesh Mota M.D. THIS IS AN ELECTRONICALLY VERIFIED REPORT Umesh Mota M.D. at 06/30/2017 4:37 PM Chase TD: 06/22/2017 18:18 JOB #: [id number] CC: Taina/edward Please Delete MEDICAL IMAGING REPORT Page 1 of 1 COPY
[~2017-06-22 10:44] MED LIST changes: +AMIODARONE PO; +COUMADIN5 MG PO; +DURAGESIC1 EAC1 TD; +POLYSPORIN15 GM TOP
[2017-06-22 11:31] LABS: BASOPHIL# 0.1 X10e3 (0-0.3); BASOPHIL% 1.1 % (0-2.5); EOSINOPHIL# 0.5 X10e3 (0-0.7); HEMATOCRIT 43.4 % (38.0-50.0); HEMOGLOBIN 14.6 gm/dL (13.0-16.0); LYMPHOCYTE# 2.1 X10e3 (1.0-3.5); LYMPHOCYTE% 18.8 % (17.0-45.0); MEAN CELL VOLUME 87.6 FL (83-96); MEAN CORPUSCULAR HEMOGLOBIN 29.5 PG (28-34); MEAN CORPUSCULAR HGB CONC 33.7 g/dL (30-36); MEAN PLATELET VOLUME 6.9 FL (6.5-11.5); MONOCYTE# 0.9 X10e3 (0-1.0); MONOCYTE% 8.2 % (3.0-12.0); NEUTROPHIL# 7.7 X10e3 (1.5-7.1); NEUTROPHIL% 67.9 % (40-75); PLATELET COUNT 369 X10e3 (140-420); RED BLOOD COUNT 4.96 X10e (3.90-5.60); RED CELL DISTRIBUTION WIDTH 16.8 % (11.0-15.5); WHITE BLOOD COUNT 11.4 X10e3 (4.0-10.5)
[2017-06-22 11:34] LABS: DIFF IND NO
[2017-06-22 12:00] LABS: CALCIUM SERUM 9.4 mg/dL (8.4-10.2); GLOM FILT RATE Estimated 79.2 mL/min (>60); POTASSIUM 3.9 mmol/L (3.5-5.1)
== END 2017-06-22 16:15 | disposition home or self-care (01) ==
LOC: CED 10:44
PROVIDERS: Emergency Medicine
DX: G89.18 Other acute postprocedural pain (principal); R18.8 Other ascites; J44.9 Chronic obstructive pulmonary disease, unspecified; F17.200 Nicotine dependence, unspecified, uncomplicated; Z88.0 Allergy status to penicillin; Z79.01 Long term (current) use of anticoagulants; Z79.899 Other long term (current) drug therapy
CPT/HCPCS: 36415; 74177; 80048; 85025; 99284; J1642; Q9967

== ENCOUNTER → 2017-07-04 | Outpatient (CLI) | payer MEDICARE ==
--- NOTE | ~2017-07-04 | MR2 ---
[facility] A Service of [facility] & [facility] RADIOLOGY TEXT RESULTS PATIENT: DANIEL JONES LOCATION: [facility] : 51 UNIT #: [id number] AGE: [address]: REA BULL SEX: M ORDER DR: [id number] [facility] [address] [place], [place] [address] [id number] O MR#: [id number] Acc #: [id number] NAME: DANIEL JONES : 1955 SEX: M STUDY DATE/TIME: 07/04/2017 12:37 UNIT: [facility] ROOM: STUDY DESCRIPTION: MR Abdomen WWo Cont Attending Physician: Rea Bull A.P.R.N. Referring Physician: Rea Bull A.P.R.N. Ordering Physician: Rea Bull A.P.R.N. Primary Care Physician: Isak Jacobs M.D. MRI CENTER REPORT This report is preliminary unless electronic signature is present. EXAM MRI abdomen without and with contrast 07/04/2017 HISTORY 62-year-old male with history of bladder cancer, testicular and penile cancer, prostate cancer. Most recent surgery May 2017. Recent CT demonstrated the liver lesions, concern for potential metastatic disease to the liver. COMPARISON CT abdomen and pelvis 06/22/2017. TECHNIQUE Precontrast and postcontrast imaging was obtained of the abdomen. Multiplanar, multisequence imaging was utilized. 13 mL MultiHance was administered intravenously for the exam. This CT exam was performed with one or more of the following radiation dose reduction techniques: automatic exposure control, adjustment of mA and/or kV according to patient size, and iterative reconstruction. FINDINGS A 7 mm cyst is demonstrated within the left hepatic lobe (segment 2/3), corresponding to the 4 mm low-density lesions described on recent CT. There is a tiny 3 mm focus of non-enhancement within the medial left hepatic segment (segment 4A), immediately contiguous to the falciform ligament. It cannot be seen on the T1 or T2 weighted images, and is favored to represent benign area of focal scarring are normal lobulation. There are no suspicious enhancing liver lesions and no lesions with washout characteristics. No convincing evidence of metastatic disease to the liver. [facility] A Service of [facility] & [facility] RADIOLOGY TEXT RESULTS PATIENT: DANIEL JONES LOCATION: [facility] : 51 UNIT #: [id number] AGE: [address]: REA BULL SEX: M ORDER DR: Major hepatic vasculature is patent. There is focal cortical scarring in the right mid- to upper renal pole. Left kidney appears unremarkable. The spleen, pancreas and adrenal glands are within normal limits. No pathologically enlarged lymph nodes are identified. [id number]-fyynlwhf atherosclerotic plaquing within the infrarenal abdominal aorta without thalia aneurysm. Tiny gallstones are seen within the gallbladder. No abnormal gallbladder wall thickening or inflammatory change is identified. No abnormal biliary ductal dilation is evident. The imaged bowel appears grossly unremarkable. IMPRESSION 1. No convincing evidence of metastatic disease within the liver. A 7 mm cyst is seen within the lateral left hepatic segment corresponding to the abnormality described on recent CT chest. The other question abnormality within the liver corresponds to area of probable normal hepatic lobulation or scarring. 2. No convincing evidence of metastatic disease elsewhere within the imaged abdomen. 3. Right renal cortical scarring. 4. Uncomplicated cholelithiasis. Dictated by... Enriqueta Motley M.D. THIS IS AN ELECTRONICALLY VERIFIED REPORT Enriqueta Motley M.D. at 07/08/2017 10:51 AM UJLIET/tana TD: 07/07/2017 18:03 JOB #: [id number] MRI CENTER REPORT Page 1 of 1 COPY
--- NOTE | ~2017-07-04 | NM8 ---
[facility] A Service of [facility] RADIOLOGY TEXT RESULTS PATIENT: DANIEL JONES LOCATION: [facility] : 51 UNIT #: [id number] AGE: [address]: REA BULL SEX: M ORDER DR: [id number] [facility] [address] [place], [place] [address] [id number] O MR#: [id number] Acc #: [id number] NAME: DANIEL JONES : 1955 SEX: M STUDY DATE/TIME: 07/04/2017 11:23 UNIT: [facility] ROOM: STUDY DESCRIPTION: VA Bone or Joint Whole Body Attending Physician: Rea Bull A.P.R.N. Referring Physician: Rea Bull A.P.R.N. Ordering Physician: Damien Gibbs Primary Care Physician: Isak Jacobs M.D. MEDICAL IMAGING REPORT This report is preliminary unless electronic signature is present EXAM Whole-body bone scan HISTORY 62-year-old male with adenocarcinoma prostate, invasive bladder carcinoma. The patient has undergone cystectomy and extensive pelvic surgery. COMPARISON CT abdomen and pelvis 06/22/2017 FINDINGS Whole-body and selected spot images performed of the axial and appendicular skeleton following the intravenous administration of 28.4 mCi technetium 99m MDP. Examination demonstrates increased uptake within the medial compartment of both knees right greater than left and also within the right midfoot and at the first MTP joint compatible with degenerative change. Mild increased uptake in the right AC joint, also compatible with degenerative change. No abnormal uptake seen within the long bones, pelvis, ribs, spine or calvarium to suggest osseous metastatic disease. Bilateral renal activity noted. Extensive activity is seen in the right anterior abdomen related to the patient's diverting ureteroscopy. IMPRESSION The no abnormal uptake identified to suggest osseous metastatic disease. Multifocal degenerative uptake as detailed above. Dictated by... Radha Langley M.D. THIS IS AN ELECTRONICALLY VERIFIED REPORT Radha Langley M.D. at 07/05/2017 4:03 PM JMS/to STS. [facility] A Service of [facility] & [facility] RADIOLOGY TEXT RESULTS PATIENT: DANIEL JONES LOCATION: [facility] : 51 UNIT #: [id number] AGE: [address]: REA BULL SEX: M ORDER DR: TD: 07/04/2017 20:19 JOB #: [id number] MEDICAL IMAGING REPORT Page 1 of 1 COPY
== END | disposition home or self-care (01) ==
LOC: CNUC 07:58
DX: Z08 Encounter for follow-up examination after completed treatment for malignant neoplasm (principal); K80.20 Calculus of gallbladder without cholecystitis without obstruction; N28.89 Other specified disorders of kidney and ureter; K76.89 Other specified diseases of liver; Z85.46 Personal history of malignant neoplasm of prostate; Z85.51 Personal history of malignant neoplasm of bladder; Z90.6 Acquired absence of other parts of urinary tract
CPT/HCPCS: 74183; 78306; A9503; A9577